=== PATIENT | female | born 1970 | race Two or more races ===

== ENCOUNTER 2023-10-27 16:35 | Emergency (ER) | payer BC ==
[~2023-10-27] VITALS: Ht 160 cm; Wt 81.6 kg
[2023-10-27 17:40] LABS: BASOPHILS % (AUTO) 0.6 % (0.0-2.0); EOSINOPHILS # (AUTO) 0.1 K/uL (0.0-0.7); EOSINOPHILS % (AUTO) 1.5 % (0.0-6.0); HEMATOCRIT 42 % (33-45); LYMPHOCYTES # (AUTO) 1.7 K/uL (0.8-4.8); LYMPHOCYTES % (AUTO) 20.9 % (20.0-44.0); MEAN CORPUSCULAR HEMOGLOBIN 33 PG (26.0-33.0); MEAN CORPUSCULAR HGB CONC 34 g/dl (31.0-36.0); MEAN CORPUSCULAR VOLUME 100 fL (82-100); MONOCYTES # (AUTO) 0.6 K/uL (0.1-1.30); NEUTROPHILS # (AUTO) 5.5 K/uL (1.8-8.9); PLATELET COUNT (AUTO) 376 K/uL (150-450); RED CELL DISTRIBUTION WIDTH 12.9 % (11.5-15.0); WHITE BLOOD COUNT (AUTO) 7.9 K/uL (4.3-11.0)
[2023-10-27 17:49] LABS: CALCIUM, SERUM 9.3 mg/dL (8.5-10.1); CARBON DIOXIDE 28 mmol/L (21-32); CHLORIDE 104 mmol/L (98-107); CREATININE 0.7 mg/dL (0.6-1.3); GLUCOSE 105 mg/dL (74-106); SODIUM SERUM 138 mmol/L (136-145); UREA NITROGEN, BLOOD 14 mg/dL (7-18)
[2023-10-27 17:54] LABS: ALANINE AMINOTRANSFERASE 25 U/L (12-78); ALBUMIN 4.1 g/dL (3.4-5.0); ALCOHOL, BLOOD < 3 mg/dL (0-10); ALKALINE PHOSPHATASE 88 U/L (46-116); BILIRUBIN,TOTAL 0.4 mg/dL (0.2-1.0); TOTAL PROTEIN, SERUM 7.6 g/dL (6.4-8.2)
[2023-10-27 17:55] LABS: BILIRUBIN,DIRECT 0.1 mg/dL (0.0-0.2)
[2023-10-27 17:56] LABS: ACETAMINOPHEN 0 ug/ml (10-30)
[2023-10-27 19:53] LABS: ASPARTATE AMINOTRANSFERASE 5 U/L (15-37)
[2023-10-27 20:10] LABS: APPEARANCE,URINE Clear (CLEAR); BILIRUBIN,URINE Negative (NEGATIVE); BLOOD, URINE Negative Ery/uL (NEGATIVE); COLOR,URINE LIGHT YELLOW (YELLOW); KETONES,URINE Negative (NEGATIVE); LEUKOCYTE ESTERASE ,URINE Negative (NEGATIVE); NITRITE, URINE Negative (NEGATIVE); PH,URINE 6.5 (5.0-8.0); PROTEIN,URINE Negative (NEGATIVE); UGLUCOSE Negative (NEGATIVE); UROBILINOGEN,URINE 0.2 EU/dL (0.2)
[2023-10-27 20:27] LABS: AMPHETAMINE, URINE NEGATIVE (NEGATIVE); BARBITURATE, URINE NEGATIVE (NEGATIVE); BENZODIAZEPINE, URINE NEGATIVE (NEGATIVE); COCCAINE, URINE NEGATIVE (NEGATIVE); OPIATE, URINE NEGATIVE (NEGATIVE); PHENCYCLIDINE SCREEN,URINE NEGATIVE (NEGATIVE)
[2023-10-27 20:36] LABS: CANNABINOID, URINE POSITIVE (NEGATIVE)
[2023-10-27] MEDS: QUETIAPINE FUMARATE 100 MG TABLET PO SCH (23:00)
[2023-10-27] MEDS: PROPRANOLOL LA 60 MG CAP.SA.24H PO SCH (23:00)
[2023-10-27] MEDS: oxyCODONE/APAP (5/325 MG) 1 UDTAB TABLET PO ONE (23:00)
[2023-10-27] MEDS: LamoTRIgine 100 MG TABLET PO SCH (23:00)
[2023-10-27] MEDS ORDERED: PROPRANOLOL HCL 10 MG TABLET ONE (23:05)
[2023-10-27] MEDS ORDERED: QUETIAPINE FUMARATE 100 MG TABLET ONE (23:05)
[2023-10-27] MEDS ORDERED: oxyCODONE/APAP (5/325 MG) 1 UDTAB TABLET ONE (23:05)
[2023-10-27] MEDS: DULOXETINE HCL 30 MG CAPSULE.DR PO SCH (23:41)
[2023-10-27] MEDS: DULOXETINE HCL 30 MG CAPSULE.DR ONE (23:44)
[2023-10-28] MEDS: IV NS 0.9% 1,000 ML BAG IV ONE (04:48)
[2023-10-28] MEDS: DULOXETINE HCL 30 MG CAPSULE.DR PO ONE (07:46)
[2023-10-28 07:48] VITALS: BP 98/56; TEMP 98.1; O2SAT 98
== END 2023-10-28 07:49 | disposition home or self-care (01) ==
LOC: ER 16:44
DX: R45.851 Suicidal ideations (principal); M79.641 Pain in right hand; Z20.822 Contact with and (suspected) exposure to COVID-19
CPT/HCPCS: 99285; 73130; 85025; 80048; 80076; 81003; 36415; 87426; 80143; 80320; 80307; 96360; J7030; G0480